=== PATIENT | female | born 1970 | race Caucasian/White ===

== ENCOUNTER → 2017-06-10 | Outpatient (CLI) | payer BC ==
--- NOTE | 2017-06-11 15:35 | RAD ---
DATE: 06/10/2017 EXAM: MAMMO AICHA SCREENING BILATERAL Bilateral Screening Digital 2D and 3D Mammogram HISTORY: Screening Mammogram COMPARISON: Screening mammogram 06/10/2017, 01/15/2016, 10/06/2013, right breast ultrasound 08/28/2016 and 02/16/2016 This study was interpreted with the benefit of Computerized Aided Detection (CAD). The breast parenchyma is heterogeneously dense, which could reduce sensitivity of mammography. Breast parenchyma level C. FINDINGS: Bilateral digital 2-D and 3-D tomosynthesis CC and MLO views. There is a stable circumscribed mass in the upper outer right breast, consistent with cyst seen on recent right breast ultrasound. No suspicious mass, calcification or architectural distortion. No significant change from prior examination IMPRESSION: No mammographic evidence of malignancy. Recommend routine screening mammogram in 12 months. BI-RADS CATEGORY: 2 BENIGN FINDING(S) RECOMMENDED FOLLOW-UP: 12M 12 MONTH FOLLOW-UP PQRS compliance statement: Patient information was entered into a reminder system with a target due date for the next mammogram. Mammography is a sensitive method for finding small breast cancers, but it does not detect them all and is not a substitute for careful clinical examination. A negative mammogram does not negate a clinically suspicious finding and should not result in delay in biopsying a clinically suspicious abnormality. "Our facility is accredited by the [employer] Mammography Program."
== END | disposition home or self-care (01) ==
LOC: MAMMO 09:26
PROVIDERS: ATTEND Obstetrics & Gynecology
DX: Z12.31 Encounter for screening mammogram for malignant neoplasm of breast (principal)
CPT/HCPCS: 77063; G0202; 77067

== ENCOUNTER → 2019-04-02 | Outpatient (CLI) | payer BC ==
--- NOTE | 2019-04-05 16:18 | RAD ---
DATE: 04/02/2019 EXAM: MAMMO AICHA SCREENING BILATERAL HISTORY: Routine screening COMPARISON: 01/23/2016 and 06/10/2017 mammographic exams This study was interpreted with the benefit of Computerized Aided Detection (CAD). Breast Density: HETERO The breast parenchyma is heterogenously dense, which could reduce sensitivity of mammography. Breast parenchyma level C. FINDINGS: Benign calcification are present. A small new mass at the right 9:00 region is present at the far posterior aspect approximately 11.7 cm from the nipple. It measures up to 0.8 cm diameter. No distortion. IMPRESSION: New right outer breast mass. Ultrasound exam is recommended. BI-RADS CATEGORY: 0 INCOMPLETE: NEEDS ADDITIONAL IMAGING EVALUATION AND/OR PRIOR MAMMOGRAMS FOR COMPARISON. RECOMMENDED FOLLOW-UP: ADD ADDITIONAL IMAGING PQRS compliance statement: Patient information was entered into a reminder system with a target due date pending additional imaging for the next mammogram. Mammography is a sensitive method for finding small breast cancers, but it does not detect them all and is not a substitute for careful clinical examination. A negative mammogram does not negate a clinically suspicious finding and should not result in delay in biopsying a clinically suspicious abnormality. "Our facility is accredited by the [employer] Mammography Program."
== END | disposition home or self-care (01) ==
LOC: MAMMO 12:53
PROVIDERS: ATTEND Obstetrics & Gynecology
DX: Z12.31 Encounter for screening mammogram for malignant neoplasm of breast (principal)
CPT/HCPCS: 77063; 77067

== ENCOUNTER → 2019-04-08 | Outpatient (CLI) | payer BC ==
--- NOTE | 2019-04-09 13:22 | RAD ---
Examination: BREAST RIGHT History: Abnormal mammogram Comparison/Correlation: 04/02/2019 screening mammographic exam, right breast ultrasound 08/28/2016 Findings: Limited ultrasound imaging of the right breast was performed. At the 8:00 region 10 cm from nipple, there is a 0.7 cm x 0.5 cm tall by 0.5 cm hypoechoic nodule with an angulated margin. At the 9:00 region, there is a 0.3 cm diameter hypoechoic nodule with no definite flow. At the 9:00 region, there is a structure with a diameter of up to 0.6 cm that has the appearance of a lymph node. Impression: Category 4-suspicious for malignancy. Biopsy of the 8 o'clock and 9:00 region masses should be considered and can be performed by ultrasound guidance. Discussed with Dr. Angulo on 04/09/2019 at 1:20 PM. Electronically signed by: Marquez Ovalles MD (04/09/2019 1:19 PM) [facility]
== END | disposition home or self-care (01) ==
LOC: US 13:02
PROVIDERS: ATTEND Obstetrics & Gynecology
DX: N63.11 Unspecified lump in the right breast, upper outer quadrant (principal); N63.13 Unspecified lump in the right breast, lower outer quadrant
CPT/HCPCS: 76641